=== PATIENT | male | born 1950 | race Caucasian/White ===

== ENCOUNTER 2021-04-17 06:12 | Outpatient (CLI) | payer MEDICARE, OTHER ==
[~2021-04-17] VITALS: Ht 177.8 cm; Wt 70.0 kg
[2021-04-17] MEDS ORDERED: ATEN50TA PO (10:42)
[2021-04-17] MEDS ORDERED: HUM100VI SQ (10:42)
[2021-04-17] MEDS ORDERED: DULA0.75 SQ (10:42)
[2021-04-17] MEDS ORDERED: GLIP10TA24 PO (10:42)
[2021-04-17] MEDS ORDERED: HYDR25TA4 PO (10:42)
[2021-04-17] MEDS ORDERED: INSU100V6 SQ (10:51)
[2021-04-17] MEDS ORDERED: NF-VITD400 PO (11:04)
[2021-04-17] MEDS ORDERED: ATOR80TA76 PO (11:04)
[2021-04-17] MEDS ORDERED: LEVO50TA PO (11:04)
[2021-04-17] MEDS ORDERED: ASPI-999 PO (11:04)
[2021-04-17] MEDS ORDERED: EMPA25TA PO (11:04)
[2021-04-20] MEDS ORDERED: ACHD5005 PO (11:35)
== END 2021-04-17 11:15 ==
LOC: PREOP 06:12
PROVIDERS: ATTEND Surgery
DX: Z01.818 Encounter for other preprocedural examination (principal)

== ENCOUNTER 2021-04-20 07:24 | Day surgery (SDC) | payer OTHER, MEDICARE ==
[2021-04-20] VITALS (10 sets, daily range): BP systolic 126–171; BP diastolic 57–82
[~2021-04-20] VITALS: Ht 177.8 cm; Wt 70.0 kg
[~2021-04-20 07:24] MED LIST: ASPI-999 PO; ATEN50TA PO; ATOR80TA76 PO; DULA0.75 SQ; EMPA25TA PO; GLIP10TA24 PO; HUM100VI SQ; HYDR25TA4 PO; INSU100V6 SQ; LEVO50TA PO; NF-VITD400 PO
[2021-04-20] MEDS ORDERED: LIDOCAINE/EPI 1%-1:100,000 (XYLOCAINE) 20ML ONE ×2 (07:51→09:50)
[2021-04-20] MEDS: LACTATED RINGERS 1,000 ML IV PRN ×2 (07:58→10:23)
[2021-04-20] MEDS ORDERED: ceFAZolin INJECTION 1,000 MG in WATER (STERILE) FOR INJECTION 10 ML IV ONE (08:00)
[2021-04-20] MEDS ORDERED: WATER (STERILE) FOR INJECTION 10 ML ONE (08:01)
[2021-04-20] MEDS ORDERED: ceFAZolin INJECTION 1,000 MG ONE (08:01)
[2021-04-20] MEDS ORDERED: proPOfol 200 MG/20 ML (DIPRIVAN) VIAL IV ONE (09:04)
[2021-04-20] MEDS ORDERED: ONDANSETRON 4 MG/2 ML (SDV) Z0FRAN ONE (09:04)
[2021-04-20] MEDS ORDERED: fentaNYL INJ 100 MCG/2 ML AMP ONE (09:04)
[2021-04-20] MEDS ORDERED: LIDOCAINE PF 2% 5 ML (XYLOCAINE) VIAL ONE (09:04)
--- NOTE | 2021-04-20 09:34 | Progress Note-Pre Operative ---
Pre-Operative Progress Note H&P Reviewed The H&P was reviewed, patient examined and no changes noted. Date Seen by Provider: Apr 20, 2021 Time Seen by Provider: 09:33 Date H&P Reviewed: Apr 20, 2021 Time H&P Reviewed: 09:33 Pre-Operative Diagnosis: basal cell left arm IVAN GARNER DO Apr 20, 2021 09:34
[2021-04-20] MEDS ORDERED: PHENYLEPHRINE 100 MCG/ML 10 ML (ANESTHESIA) SYR ONE (09:39)
[2021-04-20] MEDS ORDERED: morphine INJ 10 MG/ML 1ML (SYR OR VIAL) IVP ONE (10:30)
[2021-04-20] MEDS ORDERED: HYDROmorphone 2 MG/ML VIAL (DILAUDID) IV ONE (10:30)
[2021-04-20] MEDS ORDERED: SEVOFLURANE (ULTANE) 15 ML INHAL SOLN ONE (10:30)
[2021-04-20] MEDS ORDERED: ONDANSETRON 4 MG/2 ML (SDV) Z0FRAN IVP PRN (10:30)
--- NOTE | 2021-04-20 11:23 | Anesthesia-General Post-Op ---
General Patient Condition Mental Status/LOC: Same as Preop Cardiovascular: Satisfactory Nausea/Vomiting: Absent Respiratory: Satisfactory Pain: Controlled Complications: Absent Post Op Complications Complications None Follow Up Care/Instructions Patient Instructions None needed. Anesthesia/Patient Condition Patient Condition Patient is doing well, no complaints, stable vital signs, no apparent adverse anesthesia problems. ALMITA JAY DO Apr 20, 2021 11:23
[2021-04-20] MEDS ORDERED: ACHD5005 PO (11:35)
--- NOTE | 2021-04-20 11:38 | Discharge Inst-Simple/Standard ---
Discharge Inst-Standard Discharge Medications New, Converted or Re-Newed RX: Transmitted to Pharmacy Patient Instructions/Follow Up Plan of Care/Instructions/FU: Tomorrow nurse visit for wound care. Ti 1-2 weeks. Activity as Tolerated: No Discharge Diet: Regular Diet Other Inst to Patient Follow up Appt: Make appointment for 1-2 week Ti Nurse visit tomorrow for wound care. Instructions: No strenuous activity. May shower in 24 hours, no tub bath or soaking. Use incentive spirometer at home as directed. No Smoking Skin/Wound Care: Irrigate and pack daily wet to dry with saline and kerlex and as needed. Symptoms to Report: Appetite Changes, Extremity Discoloration, Numbness/Tingling, Swelling Increased, Bleeding Excessive, Eyesight Changes, Pain Increased, Urine Color Change, Constipation(Persistent), Fever over 101 degree F, Pain/Pressure in chest, Urinating Difficulty, Cough Up/Vomit Blood, Heart Beat Irreg/Pounding, Pain/Pressure in jaw, Vaginal Bleeding Increase, Cramps in feet or legs, Lightheadedness, Pain/Pressure in shoulder, Diarrhea(Persistent), Memory Changes Suddenly, Questions/Concerns, Weight gain consecutive days, Dizziness/Fainting, Nausea/Vomiting, Shortness of Breath, Weight gain over 2 pounds If questions or concerns contact your physician Or seek help at emergency department. IVAN GARNER DO Apr 20, 2021 11:38
--- NOTE | 2021-04-21 03:54 | OPERATIVE REPORT ---
DATE OF SERVICE: 04/20/2021 PREOPERATIVE DIAGNOSIS: Basal cell carcinoma, left upper extremity. POSTOPERATIVE DIAGNOSIS: Basal cell carcinoma, left upper extremity. PROCEDURE PERFORMED: Excision of basal cell carcinoma, left upper extremity, 9.4 x 11 cm. SURGEON: Ivan Luke DO ANESTHESIA: General. ESTIMATED BLOOD LOSS: Minimal. COMPLICATIONS: None. INDICATIONS: The patient is a 71-year-old male with a large basal cell carcinoma of the left upper extremity. He understands risks and benefits of procedure and wished to proceed with procedure. Consent was signed in the chart. DESCRIPTION OF PROCEDURE: The patient was taken to the operating suite. He was prepped and draped in sterile fashion. Timeout was performed. Local anesthetic was infiltrated around the area of the lesion. A 15 blade scalpel was used to make an incision around it measuring 9.4 x 11 cm. The skin and subcutaneous tissues had to be removed, and at the main portion of ulceration, the fascia of the muscle had to be removed as well in order to get margin. Once this was performed and removed, the specimen was tagged with a short suture superior and a long suture lateral. The area was then washed and dried and the wound was then packed wet to dry with Kerlix and sterile bandage was applied. The patient tolerated procedure well without any complications, taken to recovery room in stable condition. RECOMMENDATIONS: The patient will need daily wound care. We will await pathology results. The patient was discussed options and will further be discussed options for further management. Job ID: [id number] DocumentID: [id number] Dictated Date: 04/20/2021 21:02:52 Iron Worker Apprentice Date: 04/21/2021 01:31:49 Dictated By: IVAN LUKE DO
== END 2021-04-20 12:25 ==
LOC: SDC 07:24
PROVIDERS: ATTEND Surgery
DX: C44.619 Basal cell carcinoma of skin of left upper limb, including shoulder (principal); I10 Essential (primary) hypertension; E11.9 Type 2 diabetes mellitus without complications; Z79.899 Other long term (current) drug therapy; Z79.4 Long term (current) use of insulin; Z98.890 Other specified postprocedural states
CPT/HCPCS: 82947; 87081; 88305

== ENCOUNTER → 2021-05-02 | Outpatient (CLI) | payer OTHER, MEDICARE ==
[~2021-05-02] MED LIST changes: +ACHD5005 PO
== END ==
LOC: WOUNDCARE 09:13
PROVIDERS: ATTEND Surgery
DX: S41.102A Unspecified open wound of left upper arm, initial encounter (principal); C44.92 Squamous cell carcinoma of skin, unspecified
CPT/HCPCS: 99212

== ENCOUNTER 2021-05-04 14:54 | Outpatient (CLI) | payer OTHER, MEDICARE ==
[~2021-05-04] VITALS: Ht 177.8 cm; Wt 70.0 kg
== END 2021-05-08 13:09 | disposition home or self-care (01) ==
LOC: PREOP 14:54
PROVIDERS: ATTEND Surgery
DX: Z01.818 Encounter for other preprocedural examination (principal)

== ENCOUNTER 2021-05-11 06:45 | Day surgery (SDC) | payer OTHER, MEDICARE ==
[2021-05-11] VITALS (10 sets, daily range): BP systolic 92–149; BP diastolic 38–73
[~2021-05-11] VITALS: Ht 177.8 cm; Wt 70.0 kg
[2021-05-11] MEDS ORDERED: WATER (STERILE) FOR INJECTION 10 ML ONE (07:47)
[2021-05-11] MEDS ORDERED: ceFAZolin INJECTION 1,000 MG ONE (07:47)
--- NOTE | 2021-05-11 07:56 | Progress Note-Pre Operative ---
Pre-Operative Progress Note H&P Reviewed The H&P was reviewed, patient examined and no changes noted. Date Seen by Provider: May 11, 2021 Time Seen by Provider: 07:55 Date H&P Reviewed: May 11, 2021 Time H&P Reviewed: 07:55 Pre-Operative Diagnosis: open wound left upper extremity IVAN GARNER DO May 11, 2021 07:55
[2021-05-11] MEDS: LACTATED RINGERS 1,000 ML IV PRN ×2 (08:17→11:22)
[2021-05-11] MEDS ORDERED: proPOfol 200 MG/20 ML (DIPRIVAN) VIAL IV ONE (09:38)
[2021-05-11] MEDS ORDERED: fentaNYL INJ 100 MCG/2 ML AMP ONE (09:38)
[2021-05-11] MEDS ORDERED: ONDANSETRON 4 MG/2 ML (SDV) Z0FRAN ONE (09:38)
[2021-05-11] MEDS ORDERED: LIDOCAINE PF 2% 5 ML (XYLOCAINE) VIAL ONE (09:38)
[2021-05-11] MEDS ORDERED: SEVOFLURANE (ULTANE) 15 ML INHAL SOLN ONE ×2 (09:38→10:57)
[2021-05-11] MEDS ORDERED: MINERAL OIL CONCENTRATE 99.9% 15 ML UDC PO ONE (09:45)
[2021-05-11] MEDS ORDERED: LIDOCAINE/EPI 1%-1:200,000 (XYLOCAINE) 30 ML VIAL ONE (09:54)
[2021-05-11] MEDS ORDERED: PHENYLEPHRINE 100 MCG/ML 10 ML (ANESTHESIA) SYR ONE (10:17)
[2021-05-11] MEDS ORDERED: ROCURONIUM 10 MG/ML 5 ML SYRINGE IV ONE (10:37)
[2021-05-11] MEDS ORDERED: NEOSTIGMINE 3 MG/3 ML VIAL ONE (10:46)
[2021-05-11] MEDS ORDERED: GLYCOPYRROLATE 0.2 MG/ML (ROBINUL) 2 ML VIAL ONE (10:46)
[2021-05-11] MEDS ORDERED: KETOROLAC 30 MG/ML VIAL ONE (11:06)
[2021-05-11] MEDS ORDERED: ONDANSETRON 4 MG/2 ML (SDV) Z0FRAN IVP PRN (11:30)
[2021-05-11] MEDS ORDERED: HYDROmorphone 2 MG/ML VIAL (DILAUDID) IV ONE (11:30)
--- NOTE | 2021-05-11 12:25 | Discharge Inst-Simple/Standard ---
Discharge Inst-Standard Patient Instructions/Follow Up Plan of Care/Instructions/FU: 1 week Ti ( Saturday) Activity as Tolerated: No Discharge Diet: Regular Diet Other Inst to Patient Follow up Appt: Make appointment for 1 week. Instructions: No lifting greater than 10 pounds. No strenuous activity. May shower in 24 hours, no tub bath or soaking. Use incentive spirometer at home as directed. No Smoking Skin/Wound Care: Keep wound vac on. We will remove on saturday in office. Any issues notify office. Kepp left leg wounds covered and area clean and dry. We will remove in office. Symptoms to Report: Appetite Changes, Extremity Discoloration, Numbness/Tingling, Swelling Increased, Bleeding Excessive, Eyesight Changes, Pain Increased, Urine Color Change, Constipation(Persistent), Fever over 101 degree F, Pain/Pressure in chest, Urinating Difficulty, Cough Up/Vomit Blood, Heart Beat Irreg/Pounding, Pain/Pressure in jaw, Vaginal Bleeding Increase, Cramps in feet or legs, Lightheadedness, Pain/Pressure in shoulder, Diarrhea(Persistent), Memory Changes Suddenly, Questions/Concerns, Weight gain consecutive days, Dizziness/Fainting, Nausea/Vomiting, Shortness of Breath, Weight gain over 2 pounds If questions or concerns contact your physician Or seek help at emergency department. IVAN GARNER DO May 11, 2021 12:25
--- NOTE | 2021-05-11 12:50 | Anesthesia-General Post-Op ---
General Patient Condition Mental Status/LOC: Same as Preop Cardiovascular: Satisfactory Nausea/Vomiting: Absent Respiratory: Satisfactory Pain: Controlled Complications: Absent Post Op Complications Complications None Follow Up Care/Instructions Patient Instructions None needed. Anesthesia/Patient Condition Patient Condition Patient is doing well, no complaints, stable vital signs, no apparent adverse anesthesia problems. No complications reported per nursing. [place] [facility] [place] Yes HILARY ABARCA CRNA May 11, 2021 12:50
--- NOTE | 2021-05-12 01:03 | OPERATIVE REPORT ---
DATE OF SERVICE: 05/11/2021 PREOPERATIVE DIAGNOSIS: Open wound, left upper extremity. POSTOPERATIVE DIAGNOSIS: Open wound, left upper extremity. PROCEDURE: Split thickness skin graft, left upper extremity 10 x 9 cm with donor site left thigh and wound VAC placement 10 x 9 cm. SURGEON: Ivan Luke DO ANESTHESIA: General. ESTIMATED BLOOD LOSS: Minimal. COMPLICATIONS: None. INDICATIONS: The patient is a 71-year-old male who had a biopsy of left upper extremity, which was from a large mass that was basal cell carcinoma. [place]. 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 The patient's wound has granulated in nicely and the patient wishes to have skin graft placed. He understands risks and benefits of procedure and wishes to proceed. Consent was signed in the chart. DESCRIPTION OF PROCEDURE: The patient was taken to the operating suite, was prepped and draped in sterile fashion on the left thigh and left upper extremity. A timeout was performed. Using a dermatome, a split thickness skin graft was taken from the left thigh. This was ran through the mesher and then attached to the wound with eleno. This covered approximately a third of the wound. A second portion of the graft was taken from the left thigh again using the dermatome and the specimen was ran through the mesher and secured to wound with eleno giving adequate coverage. Where the two areas made in the center of the wound, a 3-0 Vicryl was tied to keep it together in place. At this time, a wound VAC was applied. A silicone nonadhesive was then placed over the skin graft and a black foam was then cut to size and then placed over the skin graft. This was then secured in the usual fashion, giving adequate coverage and the wound VAC was turned on. The left thigh silicone was then covered with silicone nonadhesive and then Tegaderm was placed over this and for sterile bandage. The patient tolerated the procedure well without any complications. The patient will have the wound VAC on for approximately 7 days and then taken off in the office. Any issues before that the patient will be seen at that time. CC: Dr. Floyd - requested, unable to deliver. Job ID: [id number] DocumentID: [id number] Dictated Date: 05/11/2021 21:10:30 Contact Center Manager Date: 05/11/2021 23:22:36 Dictated By: IVAN LUKE DO
== END 2021-05-11 13:40 ==
LOC: SDC 06:45
PROVIDERS: ATTEND Surgery
DX: S41.102A Unspecified open wound of left upper arm, initial encounter (principal); C44.629 Squamous cell carcinoma of skin of left upper limb, including shoulder; I10 Essential (primary) hypertension; E11.9 Type 2 diabetes mellitus without complications; Z79.899 Other long term (current) drug therapy; Z79.82 Long term (current) use of aspirin; Z79.891 Long term (current) use of opiate analgesic; Z87.891 Personal history of nicotine dependence; Z79.890 Hormone replacement therapy; Z79.4 Long term (current) use of insulin
CPT/HCPCS: 82947; 87081